=== PATIENT | male | born 2000 | race African-American/Black ===

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

== ENCOUNTER 2023-01-28 16:38 | Emergency (ER) | payer MEDICAID | END 2023-01-28 19:28 | disposition home or self-care (01) | LOC: MW.ED 16:38 | DX: M79.89 Other specified soft tissue disorders (principal) | CPT/HCPCS: 73140-26-F8; 73140-F8; 99283 ==